=== PATIENT | female | born 2000 | race Caucasian/White ===

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

== ENCOUNTER 2020-03-01 22:04 | Emergency (ER) | payer OTHER ==
[~2020-03-01] VITALS: Ht 154.9 cm; Wt 59.4 kg
[2020-03-01 22:18] VITALS: Ht 154.9 cm; Wt 59.4 kg
[2020-03-02 00:46] VITALS: BP 118/64
== END 2020-03-02 00:46 | disposition home or self-care (01) ==
LOC: ED 22:04
DX: S61.210A Laceration without foreign body of right index finger without damage to nail, initial encounter (principal); W26.8XXA Contact with other sharp object(s), not elsewhere classified, initial encounter; Y93.89 Activity, other specified; Y92.89 Other specified places as the place of occurrence of the external cause; Y99.8 Other external cause status
CPT/HCPCS: 90715; J2001

== ENCOUNTER 2020-03-03 09:02 | Emergency (ER) | payer OTHER ==
[~2020-03-03] VITALS: Ht 154.9 cm; Wt 59.5 kg
[2020-03-03 09:07] VITALS: Ht 154.9 cm; Wt 59.5 kg
[2020-03-03 10:27] VITALS: BP 113/58
== END 2020-03-03 10:27 | disposition home or self-care (01) ==
LOC: ED 09:02
DX: S61.210D Laceration without foreign body of right index finger without damage to nail, subsequent encounter (principal); X58.XXXD Exposure to other specified factors, subsequent encounter